=== PATIENT | female | born 1970 | race American Indian/Alaskan Native ===

== ENCOUNTER 2016-12-22 12:01 | Emergency (ER) | payer BC ==
[2016-12-22] MEDS ORDERED: TORADOL IM ONE (16:22)
[2016-12-22] MEDS ORDERED: XYLOCAINE 1% 20 mL INFILTRATI ONE (16:58)
[2016-12-22 17:42] LABS: Basophils % (Auto) 0.8 % (0.0-1.8); Hematocrit 35.9 % (30.3-42.9); Hemoglobin 11.6 gm/dl (10.1-14.3); Mean Corpuscular HGB Conc 32 % (30-34); Mean Corpuscular Volume 77 fl (79-97); Platelet Count 257 K/mm3 (140-440); Red Blood Count 4.65 M/mm3 (3.65-5.03); Red Cell Distribution Width 14.7 % (13.2-15.2)
[2016-12-22 17:43] LABS: Mean Corpuscular Hemoglobin 25 pg (28-32)
[2016-12-22] MEDS ORDERED: CLEOCIN IM ONE (18:10)
[2016-12-22] MEDS ORDERED: MORPHINE IM ONE (18:10)
--- NOTE | 2016-12-22 19:57 | Emergency Department Report ---
Entered by BERNIE NAYLOR, acting as scribe for JOSÉ GUZMAN PA. - General Chief complaint: Skin/Abscess/Foreign Body Stated complaint: RT LEG BOIL/CHILLS/SWEATS Time Seen by Provider: 12/22/16 16:18 Source: patient Mode of arrival: Ambulatory Limitations: No Limitations - History of Present Illness Initial comments: 46 y/o female with no significant PMHx, presents to the ED c/o abscess to the right upper leg beginning 3 days ago. The patient states that the affected area has increased swelling and mild amount of brownish purulent discharge from the affected area. Associated symptoms of intermittent chills, diaphoresis, and tenderness in the affected area, but she denies chest pain, nausea, vomiting, abdominal pain, SOB, numbness, weakness, and headache. The symptoms are constant and 8 out of 10 severity. LMP 12/08/2016. Noted is a family Hx of diabetes. MD complaint: abscess/boil (with some drainage ) -: days(s) (3) Tetanus Up to Date: unsure Location: RLE (right upper leg crease) Severity: severe Severity scale (0 -10): 8 Quality: constant Consistency: constant Improves with: none Worsens with: palpation Context: none Associated symptoms: chills (intermittent), other (diaphoresis) Treatments Prior to Arrival: none - Related Data Previous Rx's Medication Instructions Recorded Last Taken Type Permethrin 5% [Acticin 5% CREAM] 60 gm TP ONCE #60 g 07/05/13 Unknown Rx hydrOXYzine HCL [Atarax] 25 mg PO Q6HR PRN #12 tablet 07/05/13 Unknown Rx Hydrocodone Bit/Acetaminophen 1 each PO Q8H PRN #20 tablet 07/11/13 Unknown Rx [Lortab 7.5-500 mg] Permethrin 5% [Acticin 5% CREAM] 60 gm TP DAILY #1 tube 07/11/13 Unknown Rx Ibuprofen [Motrin 600 MG tab] 600 mg PO Q8H PRN #60 tablet 12/22/16 Unknown Rx Sulfamethoxazole/Trimethoprim 1 each PO BID #10 tablet 12/22/16 Unknown Rx [Bactrim DS TAB] Allergies Allergy/AdvReac Type Severity Reaction Status Date / Time aspirin AdvReac Unknown Verified 12/22/16 13:06 Abscess Boil HPI - HPI Chief Complaint: Skin/Abscess/Foreign Body Stated Complaint: RT LEG BOIL/CHILLS/SWEATS Home Medications: Previous Rx's Medication Instructions Recorded Last Taken Type Permethrin 5% [Acticin 5% CREAM] 60 gm TP ONCE #60 g 07/05/13 Unknown Rx hydrOXYzine HCL [Atarax] 25 mg PO Q6HR PRN #12 tablet 07/05/13 Unknown Rx Hydrocodone Bit/Acetaminophen 1 each PO Q8H PRN #20 tablet 07/11/13 Unknown Rx [Lortab 7.5-500 mg] Permethrin 5% [Acticin 5% CREAM] 60 gm TP DAILY #1 tube 07/11/13 Unknown Rx Ibuprofen [Motrin 600 MG tab] 600 mg PO Q8H PRN #60 tablet 12/22/16 Unknown Rx Sulfamethoxazole/Trimethoprim 1 each PO BID #10 tablet 12/22/16 Unknown Rx [Bactrim DS TAB] Allergies/Adverse Reactions: Allergies Allergy/AdvReac Type Severity Reaction Status Date / Time aspirin AdvReac Unknown Verified 12/22/16 13:06 ED Review of Systems Comment: All other systems reviewed and negative Constitutional: chills (intermittent) Respiratory: denies: cough, shortness of breath Cardiovascular: denies: chest pain Endocrine: other (diaphoresis) Gastrointestinal: denies: abdominal pain, nausea, vomiting Skin: other (right upper leg abscess, mild drainage from the affected area) Neurological: denies: headache, weakness, numbness ED Past Medical Hx - Past Medical History Previous Medical History?: No - Surgical History Past Surgical History?: Yes Additional Surgical History: leap proceedure - Social History Smoking Status: Never Smoker Substance Use Type: None - Medications Home Medications: Home Medications Medication Instructions Recorded Confirmed Last Taken Type Permethrin 5% [Acticin 5% CREAM] 60 gm TP ONCE #60 g 07/05/13 Unknown Rx hydrOXYzine HCL [Atarax] 25 mg PO Q6HR PRN #12 tablet 07/05/13 Unknown Rx Hydrocodone Bit/Acetaminophen 1 each PO Q8H PRN #20 tablet 07/11/13 Unknown Rx [Lortab 7.5-500 mg] Permethrin 5% [Acticin 5% CREAM] 60 gm TP DAILY #1 tube 07/11/13 Unknown Rx Ibuprofen [Motrin 600 MG tab] 600 mg PO Q8H PRN #60 tablet 12/22/16 Unknown Rx Sulfamethoxazole/Trimethoprim 1 each PO BID #10 tablet 12/22/16 Unknown Rx [Bactrim DS TAB] ED Physical Exam - General Limitations: No Limitations - Other Other exam information: GENERAL: Patient is alert and oriented x 3. No apparent distress, normal gait, atraumatic. HEAD: Head is normocephalic and atraumatic. EYES: Extraocular movements are intact. EARS: Symmetrical, atraumatic, non tender. NOSE: Nose symmetrical, nontender. Nares appeared normal. MOUTH:Mouth is well hydrated and without lesions. NECK: Supple. Non edematous, no carotid bruits. No lymphadenopathy or thyromegaly. LUNGS: Symmetrical with respiration. No wheezing, rales or crackles, CTAB. HEART: Regular rate and rhythm with normal S1/S2 present. No murmurs, rubs, or gallops. ABDOMEN: Soft, nondistended. Nontender to palpation on all quadrants. No organomegaly was noted. Positive bowel sounds. No CVA tenderness. EXTREMITIES/MUSCULOSKELETAL: No cyanosis, clubbing, or rash. Full ROM bilaterally. UE/LE Pulses 2+ bilaterally. LE and UE 5+ strength bilaterally SKIN: Warm and dry. Noted is a tender abscess to the right inner groin area, that is 5 cm in diameter, with mild drainage. No associated erythema. NEUROLOGIC: No focal deficit. ED Course Vital Signs 12/22/16 12/22/16 12/22/16 13:07 16:29 18:41 Temperature 98.0 F Pulse Rate 99 H Respiratory 20 22 22 Rate Blood Pressure 151/95 O2 Sat by Pulse 100 Oximetry - I & D Right Genitals Type of Procedure: Complex Site: right inguinal Blade Size: 11 I & D Procedure: betadine prep, sterile drapes applied, sterile dressing applied Progress: See MDM note ED Medical Decision Making - Lab Data Result diagrams: 12/22/16 17:26 - Medical Decision Making 46 y/o female presents complaining of tender abscess with mild drainage to the crease of the right upper leg beginning 3 days ago. Course: Patient received 6 mg of morphine IM, clindamycin 50 mg IM and Toradol' s 60 IM. Patient positioned appropriately, 15cc lidocaine with/without epinephrine was used as a local anesthetic. #11 blade scalpal used for single incision. Additional local anesthetic injected into surrounding viable tissue prior to blunt dissection of loculated adhesions. Copius drainage of pus. Wound packed with iodoform gauze. Procedure tolerated without complications. Wound dressed with sterile 4x4 guaze and paper tape. Pt tolerated procedure well. Discussed the patient to return to ED in 2-3 days to have packing removed. Discussed with patient to follow up with PCP as referred, and to return to the ED if her symptoms return or worsen. Patient states understanding and will follow instructions. Vital signs stable, patient is in no acute distress. ED Disposition Clinical Impression: Abscess Disposition: DISCHARGED TO HOME OR SELFCARE Is pt being admited?: No Does the pt Need Aspirin: No Condition: Stable Instructions: Abscess (ED), Abscess Incision and Drainage (ED) Additional Instructions: Return to ED in 2-3 days for wound check and packing removal. Follow instructions as given. To continue medication as given Prescriptions: Ibuprofen [Motrin 600 MG tab] 600 mg PO Q8H PRN #60 tablet PRN Reason: Pain Sulfamethoxazole/Trimethoprim [Bactrim DS TAB] 1 each PO BID #10 tablet Referrals: PRIMARY CAREMD [Primary Care Provider] - 3-5 Days [facility]IN RUSSELL MD [Referring] - 3-5 Days [facility] [Outside] - 3-5 Days Forms: Work/School Release Form(ED) Time of Disposition: 19:51 This documentation as recorded by the [facility] [employer] [facility],accurately reflects the service I personally performed and the decisions made by THOMAS alaniz OYINLOLA A PA.
[2016-12-22 21:02] VITALS: BP 131/86
== END 2016-12-22 20:15 | disposition home or self-care (01) ==
LOC: ED 12:01
DX: L02.415 Cutaneous abscess of right lower limb (principal); Z79.82 Long term (current) use of aspirin
CPT/HCPCS: 10061; 36415; 85025; 96372; 99283; J1885; J2270